=== PATIENT | female | born 1970 | race Caucasian/White ===

== ENCOUNTER → 2016-10-23 | Outpatient (CLI) | payer MEDICAID | LOC: FIMAGING 14:08 | DX: Z12.31 Encounter for screening mammogram for malignant neoplasm of breast (principal) | CPT/HCPCS: G0202 ==

== ENCOUNTER 2017-11-28 08:51 | Emergency (ER) | payer MEDICAID ==
[2017-11-28] MEDS ORDERED: NS 1,000 ML IV ONE (09:13)
--- NOTE | 2017-11-28 09:15 | EDPHY ---
General - History Smoking Status: Former smoker Time Seen by Provider: 11/28/17 09:11 Narrative: CHIEF COMPLAINT: Dizziness, numbness, "do not feel right" HISTORY OF PRESENT ILLNESS: Patient presents for by vehicle with complaints of dizziness , numbness of the left hand, "I was swearing at my son last night, and I don't feel right." She states that her son told her this morning that she was "swearing at him last night, and I do not remember any of it." She has difficulty providing details that she is amnestic. She says she woke this morning with some numbness of her left hand that lasted period of time and resolved. She has had some mild headache at times, consistent with her migraines. She has no neck pain or stiffness. No fever. No chest pain. She does have some dizziness and lightheadedness. She states "I just do not feel right. I do not think I can go home right now." No modifying factors. No other associated complaints. REVIEW OF SYSTEMS: 10 systems were reviewed and negative with the exception of the elements mentioned in the history of present illness. PCP: Benjy Tyler SPECIALISTS: [facility] PAST MEDICAL HISTORY: Congenital hypoplasia of the vertebral arteries, migraines, seizure disorder PAST SURGICAL HISTORY: No recent surgical history SOCIAL HISTORY: Nonsmoker. Occasional alcohol. 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 Lives in [place] with her child FAMILY HISTORY: Noncontributory EXAMINATION: General Appearance: Alert, no distress. Anxious and fidgeting. Head: normocephalic, atraumatic Eyes: Pupils equal and round, no conjunctival pallor or injection ENT, Mouth: Mucous membranes moist Neck: Normal inspection, supple, non-tender Respiratory: Lungs are clear to auscultation Cardiovascular: Regular rate and rhythm. No murmur. Gastrointestinal: Abdomen is soft and nontender Back: non-tender, no bony abnormalities Neurological: GCS 15. A&O, nonfocal, no pronator drift. Normal finger-to- nose. Light sensory is symmetric in the upper lower extremities. Strength is symmetric in the upper lower extremities. Skin: Warm and dry, no rash Extremities: Nontender, no pedal edema Psychiatric: Anxious and fidgeting. DIFFERENTIAL DIAGNOSES: Including but not limited to anxiety reaction, acute stress reaction, syncope, near-syncope, dehydration, ACS, vertigo, seizure disorder, migraines MDM: 9:10 a.m. Multiple vague complaints that are difficult for the patient to describe with some motion lability, possible loss of consciousness versus talking in her sleep and some disease/lightheadedness at this time. Vital signs are within normal limits. She does appear to be anxious to me. She has a normal neuro examination. She has no chest pain. Her EKG has been obtained and will be reviewed by Dr. Mckeon. I have also discussed the case with them. She will be placed on a cardiac exercise specialist laboratory studies obtained. I will also obtain orthostatics and provide IV fluid anti anxiety medication. 9:25 a.m. Orthostatic vital signs are within normal limits. I have discussed further with Dr. Mckeon, he recommends MRI of the brain due to the left hand numbness. I do agree this is reasonable. I presented this to the patient she agrees to proceed. Labs currently pending. I have ordered IV Ativan as she does appear very anxious. 9:30 a.m. Patient re-evaluated. She has no also stating that she feels somewhat depressed and is concerned about going home taking care for children. She denies suicidal ideation. She denies homicidal ideation. Patient will likely need mental health evaluation. She is not meet criteria for an M1 hold at this time. 10:10 a.m. Laboratory studies thus far negative. Troponin is negative. Alcohol level is only 46. Remainder of drug screen pending. 10:50 a.m. Notified by radiologist Dr. Trivedi. He reports that the MRI of the brain without contrast is within normal limits. No acute findings. 11:00 a.m. Case discussed with Candice HADLEY. She will visit with the patient. At this point the patient still does not meet criteria for M1 or detainer. 11:25 a.m. Patient has been visited by Candice. She is offered a full mental evaluation for the patient as she is not comfortable being sent to the crisis Center. Candice does feel this is the best plan a care for the patient. She remains here voluntarily at this time. 12:30 p.m. Patient remains stable awaiting evaluation. 2:30 p.m. Patient remains calm. Still awaiting evaluation. 4:00 p.m. Patient re-evaluated her request. She is requesting to be discharged home at this time. She denies suicidal ideation. She denies homicidal ideation. She would like to be discharged to go to the [facility] crisis Center for evaluation voluntarily. Nick with [facility] has provided this information for bedside. She is not meet criteria for detainer I do feel this is reasonable for this time. I have answered all her questions. I provided prescription of hydroxyzine. We discussed ED precautions for return of symptoms, any suicidal ideation or homicidal ideation. She has contract for safety verbally and her partner bedside is agreed to dry further. Discharged home stable condition. EKG interpretation: Dr. Luca Mckeon SUPERVISION: Patient was independently examined, but I discussed the case with my secondary supervising physician Dr. Luca Mckeon CONSULTATION: [facility] (Devendra Lubin) Medical Decision Making: I did not see this patient while she was in the emergency department. However her care is discussed with the PA while the patient is in the department. I agree with treatment plan and management. (Luca Mckeon) - Diagnostics EKG Interpretation: EKG interpreted by me shows normal sinus rhythm normal interval and axis. QRS is normal. No significant ST elevation or depression. No arrhythmia. The rate is 71 (Luca Mckeon) - Objective Vital Signs: Initial Vital Signs Temperature (C) 36.7 C 11/28/17 08:54 Heart Rate 85 11/28/17 08:54 Respiratory Rate 20 11/28/17 08:54 Blood Pressure 122/90 H 11/28/17 08:54 O2 Sat (%) 98 11/28/17 08:54 O2 Delivery Mode Room Air Allergies/Adverse Reactions: No Known Allergies Allergy (Unverified 11/28/17 08:59) Home Medications: Medication Instructions Recorded Amphet Asp and D/Amphet [Adderall 10 mg PO DAILY PRN 03/13/15 10 MG (*)] Meclizine HCl [Meclizine HCl 25 mg 25 mg PO BID PRN #20 tab 03/13/15 (RX,OTC)] Ondansetron Odt [Zofran Odt 4 mg 4 mg PO Q4 PRN #10 tab 03/13/15 (*)] Aspirin 81mg (OTC) 03/18/15 Hydrocodone/APAP 5/325 [[place] 1 tab PO Q4H PRN #7 tab 10/27/15 5/325] hydrOXYzine HCL [Hydroxyzine HCl] 50 mg PO Q6-8PRN PRN #20 tablet 11/28/17 Laboratory Results: Laboratory Results 11/28/17 09:19 11/28/17 09:19 Medications Given: Discontinued Medications Sodium Chloride (Ns) 1,000 mls @ 0 mls/hr IV EDNOW ONE; Wide Open PRN Reason: Protocol Stop: 11/28/17 09:14 Last Admin: 11/28/17 09:33 Dose: 1,000 mls Lorazepam (Ativan Injection) 1 mg IVP EDNOW ONE Stop: 11/28/17 09:27 Last Admin: 11/28/17 09:33 Dose: 1 mg Point of Care Test Results: Chemistry 11/28/17 09:53 POC Troponin I 0.00 ng/mL ng/mL (0.00-0.08) Departure - Departure Disposition: Home, Routine, Self-Care Clinical Impression: Anxiety reaction, Medical Clearance for psychiatric evaluation Condition: Good Instructions: Hydroxyzine (By mouth), Anxiety (ED), Anxiolysis in Adults (ED) Additional Instructions: 1. Present to the [facility] crisis Center as discussed. Information has been provided to you by the [facility] evaluators 2. Hydroxyzine as prescribed as needed for anxiety 3. Return here for any worsening symptoms, depression, thoughts of self-harm or harm towards others Referrals: Pj Burleson MD [Primary Care Provider] - As per Instructions [facility],. [Clinic] - As per Instructions Prescriptions: hydrOXYzine HCL [Hydroxyzine HCl] 50 mg PO Q6-8PRN PRN #20 tablet PRN Reason: Anxiety
[2017-11-28] MEDS ORDERED: LORazepam 2 MG/ML INJ IVP ONE (09:26)
[2017-11-28 09:35] LABS: PLATELET COUNT 297 10^3/uL (150-400)
--- NOTE | 2017-11-28 10:27 | CPEKG ---
Test Reason : OPEN Blood Pressure : / mmHG Vent. Rate : 071 BPM Atrial Rate : 071 BPM P-R Int : 119 ms QRS Dur : 091 ms QT Int : 406 ms P-R-T Axes : 072 080 061 degrees QTc Int : 442 ms Sinus rhythm Minimal ST depression, anterior leads Confirmed by Luca Mckeon ([id number]) on 11/28/2017 10:27:07 AM Referred By: Confirmed By:Luca Mckeon
--- NOTE | 2017-11-28 11:45 | ASMTLCPROG ---
Notes Note: Notes: [facility] consulted with Devendra Lubin NP. Request made to see pt for referrals and assess to determine if pt was in need of mental health evaluation. Pt stated she is concerned for her safety and desires a comprehensive MH evaluation. Pt informed of option to go to the [facility] walk in clinic. Pt aware she will be seen KATIE for full MH evaluation unless she instead decides to go to [facility] for mental health evaluation. Pt will not be placed on a M1 hold at this time. Date Signed: 11/28/2017 11:45 AM Electronically Signed By:Candice Bellamy
[2017-11-28 16:14] VITALS: BP 126/73
--- NOTE | 2017-11-28 17:15 | ASMTLCPROG ---
Notes Note: Notes: Spoke with client at length about coping mechanisms, safety plans, and Mindfulness based stress reduction techniques. Discussed PTSD symptoms, therapy options, and how to leverage support resources. Pt was very recepted and descalated quickly. PA prescribed anti anxiety med and pt agreed to use the crisis clinic if significant distress returns. PT will also follow up with [facility] to become an open client. Date Signed: 11/28/2017 05:14 PM Electronically Signed By:Nick Schafer
== END 2017-11-28 17:10 | disposition home or self-care (01) ==
LOC: EEVIPCON 08:51
DX: R42 Dizziness and giddiness (principal); R20.2 Paresthesia of skin; F41.8 Other specified anxiety disorders; E86.9 Volume depletion, unspecified
CPT/HCPCS: 80305; 84484-PO; 96374; G0480; J2060

== ENCOUNTER → 2018-05-21 | Outpatient (CLI) | payer MEDICAID | LOC: FIMAGING 14:47 | PROVIDERS: ATTEND Family Medicine | DX: Z12.31 Encounter for screening mammogram for malignant neoplasm of breast (principal) ==